=== PATIENT | male | born 1950 | race Caucasian/White ===

== ENCOUNTER → 2018-06-20 | Outpatient (REF) | payer MEDICARE ==
[2018-06-20 13:24] LABS: BLOOD UREA NITROGEN 12 MG/DL (7-18); CREATININE FOR GFR 1.16 MG/DL (0.70-1.30); GLOMERULAR FILTRATION RATE > 60.0 (>42)
== END ==
LOC: M LABDRAW1 12:39
PROVIDERS: ATTEND Physician Assistant Surgical
DX: S52.515A Nondisplaced fracture of left radial styloid process, initial encounter for closed fracture (principal); Y99.9 Unspecified external cause status; Y93.9 Activity, unspecified; Y92.9 Unspecified place or not applicable; X58.XXXA Exposure to other specified factors, initial encounter

== ENCOUNTER → 2018-07-10 | Outpatient (CLI) | payer MEDICARE ==
[2018-07-10 19:15] LABS: BASO # 0.1 10^3/uL (0.0-0.2); BASO % 0.6 % (0.0-1.0); EOS # 0.4 10^3/uL (0.0-0.50); EOS % 2.6 % (0.0-3.0); HEMATOCRIT 41.9 % (42.0-52.0); LYMPH # 3.6 10^3/uL (1.5-4.5); LYMPH % 27.3 % (24.0-44.0); MEAN CORPUSCULAR HEMOGLOBIN 31.6 pg (27.0-33.0); MEAN CORPUSCULAR HGB CONC 33.4 g/dl (32.0-36.5); MEAN CORPUSCULAR VOLUME 94.6 fl (80.0-96.0); MONO # 1.4 10^3/uL (0.0-0.8); MONO % 10.7 % (0.0-5.0); NEUTROPHILS # 7.8 10^3/uL (1.8-7.7); NEUTROPHILS % 58.4 % (36.0-66.0); PLATELET COUNT, AUTOMATED 439 10^3/uL (150-450); RED BLOOD COUNT 4.43 10^6/uL (4.30-6.10); WHITE BLOOD COUNT 13.3 10^3/uL (4.0-10.0)
[2018-07-10 19:34] LABS: ALT/SGPT 26 U/L (12-78); BILIRUBIN,TOTAL 0.8 MG/DL (0.2-1.0); BLOOD UREA NITROGEN 11 MG/DL (7-18); CALCIUM LEVEL 9.8 MG/DL (8.8-10.2); CARBON DIOXIDE LEVEL 29 MEQ/L (21-32); CHLORIDE LEVEL 102 MEQ/L (98-107); CHOLESTEROL LEVEL 208 MG/DL (<200); CHOLESTEROL RISK RATIO 2.212 (<5); CREATININE FOR GFR 1.09 MG/DL (0.70-1.30); FREE T4 1.15 NG/DL (0.76-1.46); GLOMERULAR FILTRATION RATE > 60.0 (>42); GLUCOSE, FASTING 76 MG/DL (70-100); HDL CHOLESTEROL 94 MG/DL (>40); LDL CHOLESTEROL 102 MG/DL (<100); NON-HDL-C 114 MG/DL; POTASSIUM SERUM 4.5 MEQ/L (3.5-5.1); SODIUM LEVEL 137 MEQ/L (136-145); THYROID STIMULATING HORMONE 0.401 uIU/ML (0.358-3.740); TOTAL PROTEIN 7.2 GM/DL (6.4-8.2); TRIGLYCERIDES LEVEL 58 MG/DL (<150)
== END ==
LOC: M SMT 12:58
PROVIDERS: ATTEND Physician Assistant
DX: I10 Essential (primary) hypertension (principal); K21.9 Gastro-esophageal reflux disease without esophagitis

== ENCOUNTER 2019-10-13 13:15 | Outpatient (RCR) | payer MEDICARE | END 2019-10-14 | disposition home or self-care (01) | LOC: M ST 13:15 | PROVIDERS: ATTEND Family Medicine | DX: G11.9 Hereditary ataxia, unspecified (principal); G60.8 Other hereditary and idiopathic neuropathies ==

== ENCOUNTER 2019-11-05 13:31 | Outpatient (RCR) | payer MEDICARE | END 2019-11-14 | LOC: M ST 13:31 | PROVIDERS: ATTEND Family Medicine | DX: G11.9 Hereditary ataxia, unspecified (principal) ==

== ENCOUNTER 2019-11-25 08:00 | Outpatient (RCR) | payer MEDICARE | END 2019-12-15 | LOC: M ST 08:00 | PROVIDERS: ATTEND Family Medicine | DX: G11.2 Late-onset cerebellar ataxia (principal); R47.1 Dysarthria and anarthria ==

== ENCOUNTER 2020-11-10 18:20 | Emergency (ER) | payer MEDICARE ==
[~2020-11-10] VITALS: Ht 167.6 cm; Wt 75.0 kg
[2020-11-10] MEDS ORDERED: BUPR150T12 (19:31)
[2020-11-10] MEDS ORDERED: ESOM20CA25 (19:31)
[2020-11-10] MEDS ORDERED: FLUO40CA (19:31)
[2020-11-10] MEDS ORDERED: TAMS1CAP17 (19:31)
[2020-11-10] MEDS ORDERED: DIAZ5TAB (19:31)
[2020-11-10] MEDS ORDERED: BYST5TAB2 (19:31)
[2020-11-10] MEDS ORDERED: AMLO1TAB25 (19:31)
[2020-11-10] MEDS ORDERED: ROSU5TAB5 (19:31)
[2020-11-10] MEDS ORDERED: LISI40TA4 (19:31)
[2020-11-10] MEDS ORDERED: NEOSPORIN OINT 0.9 GM PKT TOP ONE (19:35)
[2020-11-10] MEDS ORDERED: LIDOCAINE 1% MDV 20ML VIAL SC ONE (19:35)
[2020-11-10 21:20] VITALS: BP 129/67
== END 2020-11-10 21:13 | disposition home or self-care (01) ==
LOC: M ED 18:20
DX: S01.81XA Laceration without foreign body of other part of head, initial encounter (principal); W18.39XA Other fall on same level, initial encounter; Y92.018 Other place in single-family (private) house as the place of occurrence of the external cause; I10 Essential (primary) hypertension; Z79.899 Other long term (current) drug therapy; F17.210 Nicotine dependence, cigarettes, uncomplicated

== ENCOUNTER → 2023-09-27 | Outpatient (CLI) | payer MEDICARE ==
[~2023-09-27] MED LIST: AMLO1TAB25; BUPR150T12; BYST1TAB2; DIAZ5TAB; ESOM20CA25; FLUO40CA; LISI40TA4; ROSU5TAB40; TAMS1CAP17
== END ==
LOC: M RAD 15:22
PROVIDERS: ATTEND Physician Assistant
DX: R22.42 Localized swelling, mass and lump, left lower limb (principal)